=== PATIENT | female | born 1950 | race Caucasian/White ===

== ENCOUNTER → 2020-01-08 14:44 | Outpatient (BNVA) | payer MEDICARE, SELFPAY | PROVIDERS: Family Provider Electrodiagnostic Medicine; PCP Electrodiagnostic Medicine; Referring Provider Licensed Practical Nurse; Visit Provider Psychiatry & Neurology Neurology | DX: M79.602 Pain in left arm (principal); M79.601 Pain in right arm; M54.12 Radiculopathy, cervical region | CPT/HCPCS: 95886; 95910 ==

== ENCOUNTER → 2020-08-21 12:49 | Outpatient (BNVA) | payer MEDICARE, SELFPAY | PROVIDERS: Family Provider Electrodiagnostic Medicine; PCP Electrodiagnostic Medicine; Referring Provider Dermatology; Visit Provider Dermatology | DX: D48.5 Neoplasm of uncertain behavior of skin (principal); L57.0 Actinic keratosis; L82.1 Other seborrheic keratosis; D18.01 Hemangioma of skin and subcutaneous tissue; B35.1 Tinea unguium; D48.9 Neoplasm of uncertain behavior, unspecified; Z85.820 Personal history of malignant melanoma of skin | CPT/HCPCS: 11102; 17000; 17003; 88304; 99203; 99204 ==

== ENCOUNTER → 2021-09-20 15:21 | Outpatient (BNVA) | payer MEDICARE, SELFPAY | PROVIDERS: Family Provider Electrodiagnostic Medicine; PCP Electrodiagnostic Medicine; Visit Provider Registered Nurse Neonatal Intensive Care | DX: M25.532 Pain in left wrist (principal); S52.502A Unspecified fracture of the lower end of left radius, initial encounter for closed fracture; X58.XXXA Exposure to other specified factors, initial encounter | CPT/HCPCS: 73110 ==

== ENCOUNTER 2021-09-20 15:58 | Emergency (ER) | payer MEDICARE, SELFPAY ==
[2021-09-20 16:07] VITALS: BP 187/87; PULSE 85; RESP 18; TEMP 36.6; O2SAT 96; BMI 30.8
--- NOTE | 2021-09-20 16:38 | ED_ITS ---
HPI - Extremity Problem General: Chief complaint: Extremity Injury, Upper Stated complaint: FALL/L WRIST PAIN/SENT FROM [facility] [place] Time Seen by Provider: 09/20/21 16:38 History of Present Illness: HPI Narrative: Ms. Eng is a 71-year-old lady with history of back pain who presents emergency department due to fall with injury identified at urgent care. She reports being at her baseline health and was clipping her toenails when she started to fell backwards. She reached behind her with her left hand in order to protect her back and immediately had pain upon follow-up. Obvious deformity noted. She denies other prodromal symptoms, no other pain. Pain is moderate to severe in intensity and worse with palpation. She was placed in a shoulder sling by urgent care and referred to the emergency department. Asplu-ehss-tgnzdzsm. Neurovascular intact. Review of Systems General: Reports: 10 or more systems reviewed and unremarkable except in HPI and below PFSH ED PFSH: Medical History B12 deficiency Bilateral wrist pain Displacement of lumbar disc with radiculopathy Fibromyalgia History of malignant melanoma Hyperlipidemia Hypertension Intervertebral disc disorder with radiculopathy of lumbosacral region Lumbar stenosis with neurogenic claudication Melanoma Rheumatoid arthritis Spondylolisthesis of lumbosacral region Surgical History H/O: hysterectomy (~1978) History of back surgery Hx of fusion of cervical spine Nikki Huston in [place] S/P insertion of spinal cord stimulator (~2016) Dr Shade Muñiz, Neurosurgery [place], [place] (03/2017) Dr Mohan [facility] (Revision 03/03/2018) Family History Mother Stroke Melanoma Son Seizure disorder Liver disease Father Lung cancer Other Arthritis Social History Smoking and tobacco status: former smoker Alcohol intake: never Lives independently: Yes Household members: spouse Marital status: Current occupational status: disabled History of recent travel: No Physical Exam Narrative: EXAM NARRATIVE: GENERAL/CONSTITUTIONAL - well-appearing. Discomfort due to pain Eyes - PERRL, no conjunctival injection ENMT - Atraumatic external nose and ears. Moist mucous membranes NECK - supple. trachea midline CARDIOVASCULAR - regular rate and rhythm. Peripheral pulses 2+ and equal RESPIRATORY -clear to auscultation bilaterally. No retractions or accessory muscle use. ABDOMEN/GI - Nontender/Nondistended. MSK -head to toe exam without obvious additional finding other than obvious deformity with distal CMS intact left wrist. SKIN - Warm, Dry. No overlying open wounds. NEURO - alert and appropriately oriented. strength and sensation intact. Moves all extremities equally. Procedures Orthopedic Joint Reduction Joint #1: Time Out Performed: Yes Side: left Joint Reduction Location: wrist Analgesia: procedural sedation Technique used: direct manipulation Post-reduction neuro exam: intact Post-reduction vascular: intact Post Reduction X-Ray Obtained: Yes Post Reduction X-Ray Results: reduced (improved) Splint Applied: Yes Patient Tolerated Procedure: well Procedural Sedation Indication: fracture/dislocation reduction ASA Class: II Preparation: systems analyst engineer applied, pulse oximeter, supplemental O2 applied, suction/airway equipment at bedside and IV secured IV Propofol dose (mg): 70 Patient Tolerated Procedure: well Complications: none Course ED course: - Patient was seen and evaluated by me at bedside - Patient placed on cardiac monitors, IV access obtained - Initial evaluation notable for exam as noted above -Analgesia given - Imaging notable for x-ray reviewed from urgent care - Patient consented for procedural sedation and reduction - Reduction and procedural sedation performed without acute complication, some instability and inability to achieve anatomic alignment. - Upon serial reexamination after treatment the patient was improved. Patient fully recovered from procedural sedation and CMS intact. - Discussed with on-call orthopedics. - Based on patient history, evaluation, labs, and imaging as interpreted the most likely cause of the patient's condition is distal radius and ulna fracture - The results of ED evaluation were discussed with the patient including prescriptions and/or symptomatic cares (if applicable) including appropriate and responsible use, followup plan, and return precautions. The patient verbalized understanding and felt safe for discharge. - Patient discharged in satisfactory condition. Vital Signs: Vital signs: Vital Signs Temperature 97.8 F 09/20/21 16:07 Pulse Rate 72 09/20/21 19:54 Respiratory Rate 19 H 09/20/21 19:54 Blood Pressure 148/95 09/20/21 19:54 Pulse Oximetry 98 09/20/21 19:54 MDM - Extremity (Nontraumatic) Medical Records: Attestation: I reviewed the patient's medical records. Lab Data: Attestation: I reviewed the patient's lab results. Discharge Plan Discharge Patient Disposition: Home Clinical Impression: Distal radial fracture, Fracture of ulnar styloid Condition: Stable Prescriptions: New hydrocodone-acetaminophen 5-325 mg tablet 1 tab PO Q4H PRN (Reason: pain) Qty: 30 RF: 0 Zofran 4 mg tablet 4 mg PO Q8H 5 Days Qty: 15 RF: 0 No Action hydrochlorothiazide 25 mg tablet 25 mg PO QAM RF: 0 pseudoephedrine HCl [Sudogest] 30 mg tablet 30 mg PO BID RF: 0 Complete Multivitamin Tablet 1 tab PO QDAY RF: 0 magnesium 200 mg tablet 200 mg PO QDAY RF: 0 duloxetine 30 mg capsule, delayed rel sprinkle 30 mg PO QDAY RF: 0 duloxetine 60 mg capsule, delayed rel sprinkle 60 mg PO QDAY RF: 0 baclofen 10 mg tablet 10 mg PO QDAY PRNRF: 0 omeprazole 40 mg capsule,delayed release(DR/EC) 40 mg PO BID RF: 0 lovastatin 20 mg tablet 20 mg PO QDAY RF: 0 fluticasone furoate 50 mcg/actuation blister with device 1 inh INHALATION ONCE RF: 0 lisinopril 20 mg tablet 20 mg PO QDAY RF: 0 Belbuca 300 mcg film 300 mcg BUCCAL Q12H RF: 0 mupirocin 2 % ointment 1 applic topical BID Qty: 22 RF: 1 Discharge Orders: Discharge ED (Routine); Ordered 09/20/21 Ordered By: Ag Pretty Referrals: Gideon Santana DO [Primary Care Provider] - Discharge Diet: Usual diet Discharge Activity: Limit activity as instructed Patient Instructions: Wrist Fracture in Adults (ED), Procedural Sedation (ED), Closed Reduction (ED), Opioid Safety Activity Restrictions/Additional Instructions: Thank you for visiting the emergency department. You were seen and evaluated for wrist fracture. This was reduced at bedside and splinted. He will require follow-up with orthopedics. You will be given a prescription for analgesia. You may use Tylenol and ibuprofen on top of this. Keep in mind that each tablet contains 325 mg of Tylenol (acetaminophen) and must be included in the total daily dose limit. Please keep in mind that many medications that are namebrand contain the same active ingredients or class and do not exceed the daily recommended dosage. Please return to the emergency department for anything that you are concerned about and feel needs emergency department evaluation. Coding Level of Care Code ED Security Intelligence Analyst for Paul Barragan
[2021-09-20] MEDS: fentaNYL 50 mcg/mL INJ 2mL IVP (16:55)
[2021-09-20] MEDS: propofol 10 mg/mL SDV 20 mL 200 MG IVP (18:25)
--- NOTE | 2021-09-20 18:38 | XRR_ITS ---
PROCEDURE INFORMATION: Exam: XR Left Wrist Exam date and time: 09/20/2021 6:38 PM Age: 71 years old Clinical indication: Device placement; Other: Post reduction/splint TECHNIQUE: Imaging protocol: XR Left wrist. Views: 1 or 2 views. COMPARISON: CR XR wrist LT min 3V* [id number] 09/20/2021 3:25 PM FINDINGS: Bones/joints: Interval casting of the distal radius and ulnar fractures with improved alignment of the distal radial displaced fractures. Soft tissues: Soft tissues are obscured by casting. XR/XR wrist LT 2V [id number] IMPRESSION: Interval casting of the distal radius and ulnar fractures with improved alignment. Radiation Dose CTDIVOL = (mGy): DLP = (mGy-cm)
[2021-09-20] MEDS: ondansetron 2 mg/ML SDV 2 mL 4 MG IVP (18:42)
[2021-09-20 19:54] VITALS: BP 148/95; PULSE 72; RESP 19; O2SAT 98
--- NOTE | 2021-09-22 08:56 | DCPLANNER ---
senior international tax manager had message to schedule a follow up appointment for patient with ortho. senior international tax manager called the ortho clinic, spoke with Marlyn, gave clinic patients information. senior international tax manager was told that patients information would be printed and reviewed. Clinic will call patient with appointment information.
--- NOTE | 2021-09-25 15:20 | DCPLANNER ---
Patient had an appointment scheduled for 09.25.2021 with CANDY Tong at [facility] - patient did attend appointment.
== END 2021-09-20 19:54 | disposition home or self-care (01) ==
PROVIDERS: Emergency Provider Emergency Medicine; PCP Electrodiagnostic Medicine
DX: S52.612A Displaced fracture of left ulna styloid process, initial encounter for closed fracture (principal); S52.502A Unspecified fracture of the lower end of left radius, initial encounter for closed fracture; W19.XXXA Unspecified fall, initial encounter; I10 Essential (primary) hypertension; E78.5 Hyperlipidemia, unspecified; M06.9 Rheumatoid arthritis, unspecified; Z87.891 Personal history of nicotine dependence; M25.532 Pain in left wrist; X58.XXXA Exposure to other specified factors, initial encounter
CPT/HCPCS: 25605; 73100; 73110; 96374; 96375; 99284; J2405; J2704; J3010

== ENCOUNTER → 2021-09-26 00:01 | Outpatient (BNVA) | payer MEDICARE, SELFPAY | PROVIDERS: PCP Electrodiagnostic Medicine; Referring Provider Emergency Medicine; Visit Provider Physician Assistant | DX: Z20.822 Contact with and (suspected) exposure to COVID-19 (principal) | CPT/HCPCS: 87635 ==

== ENCOUNTER 2021-10-01 05:48 | Day surgery (SDC) | payer MEDICARE, OTHER, SELFPAY ==
[2021-09-30 13:45] VITALS: BMI 30.8
[2021-10-01] VITALS (8 sets, daily range): BP systolic 94–180; BP diastolic 65–108; PULSE 73–84; RESP 12–20; TEMP 36.2–37; O2SAT 94–98
--- NOTE | 2021-10-01 | SCC_ITS ---
Procedure Done: ORIF left extra articualr distal radius 12.3 seconds of fluoroscopic guidance, for a cumulative dose of 0.20 mGy, was provided to Dr. Soria by the radiology department. C-arm images of the LEFT wrist were saved for the patient's permanent record. DONELL
--- NOTE | 2021-10-01 | XR_ITS ---
WS: [id number] Left wrist, C-arm fluoroscopy, 10/01/2021 Clinical Data: or pics Comparison: Left wrist, 09/20/2021 Findings: Dr. Soria reduced the distal left radial fracture with a plate and screws. XR/XR wrist LT 2V [id number] Impression: Internal fixation of distal left radial fracture.
[2021-10-01] MEDS: sodium chloride 0.9% 1,000 ML 30 ML IV (06:30)
--- NOTE | 2021-10-01 06:49 | W.PM.OPSUD ---
Surgery/Procedure H&P Update DATE OF PROCEDURE: October 01, 2021 DATE H&P PERFORMED: 09/25/21 H&P UPDATE INFORMATION: I have reviewed H&P completed within last 30 days, I have examined patient prior to procedure and No changes to prior documentation PREOP DIAGNOSIS: Left distal radius fracture PLANNED PROCEDURE: Operation Date: 10/01/21 07:00 Proposed Procedures p ORIF Wrist 99481 S52.509A(Not Applicable) - Farhad Soria DO
--- NOTE | 2021-10-01 06:54 | ANES.PREANE2 ---
Pre-Anesthetic Assessment Pre-Anesthetic Assessment: Height/Weight: Height 1.6 m Weight 78.925 kg Temp Pulse Resp BP Pulse Ox 98.1 F 84 18 180/90 96 10/01/21 06:11 10/01/21 06:11 10/01/21 06:11 10/01/21 06:11 10/01/21 06:11 Preop Diagnosis: Left distal radius fracture Proposed Procedure: Operation Date: 10/01/21 07:00 Proposed Procedures p ORIF Wrist 33413 S52.509A(Not Applicable) - Farhad Soria DO Familial anesthetic complications: none Was Beta Akila taken within 24 hours: N/A Was Clonidine taken within 24 hours: N/A Last intake: Intake Last Liquid Date 09/30/21 Last Liquid Time 23:30 Last Solid Date 09/30/21 Last Solid Time 23:30 Social: Social History: No alcohol and No tobacco Exam: Pre-Anes Outpt Exam: alert, oriented x 3, clear to auscultation bilaterally and regular rate & rhythm Airway: Cervical ROM: WNL MP: 1 Dentition: False CV/HEM: CV/HEM: HTN Musc/skel: Musc/skel: Fibromyalgia Anesthetic Plan: ASA status: 2 Anesthesia: General and Regional (specify below) Risk of > 500 ml blood loss (7ml/kg in children): No PFSH Anesthesia PFSH: Medical History B12 deficiency Bilateral wrist pain Displacement of lumbar disc with radiculopathy Fibromyalgia History of malignant melanoma Hyperlipidemia Hypertension Intervertebral disc disorder with radiculopathy of lumbosacral region Lumbar stenosis with neurogenic claudication Melanoma Rheumatoid arthritis Spondylolisthesis of lumbosacral region Surgical History H/O: hysterectomy (~1978) History of back surgery Hx of fusion of cervical spine Nikki Huston in [place] S/P insertion of spinal cord stimulator (~2016) Dr Shade Muñiz, Neurosurgery [place], [place] (03/2017) Dr Mohan, [facility] (Revision 03/03/2018) Family History Mother Stroke Melanoma Son Seizure disorder Liver disease Father Lung cancer Other Arthritis Social History Smoking and tobacco status: former smoker Alcohol intake: never Lives independently: Yes Household members: spouse Marital status: Current occupational status: disabled History of recent travel: No Data Anesthesia Cardiac Studies: No Data to Display
--- NOTE | 2021-10-01 06:55 | ANES.PROC ---
Anesthesia Procedures Procedure/Date: 10/01/21 Nerve Block ^: Nerve Block 1: Main Anesthesia: general anesthesia Time Out Performed: Yes Consent: requested by attending/covering physician, from patient, risks and benefits reviewed and patient agrees to proceed Nerve block location: axillary (L) Anesthesia monitors applied: pulse oximetry, EKG, BP cuff and oxygen Nerve block position: semi sitting Anesthetic Used: ropivicaine 0.5% and with decadron (4 mg) Amount of anesthesia used (mL): 30 Ultrasound used to: recognize landmarks and visualize and ID brachial plexus Nerve Stimulator Used?: No Interscalene/Femoral BLK: 2 stimuplex 22 g needle used for position and inplane approach, visualize local anesthetic spread and no vascular puncture identified Injection: neg aspiration of heme Patient Tolerated Procedure: well Complications: none
--- NOTE | 2021-10-01 07:48 | PM.OP ---
Operative Report Date of procedure: October 01, 2021 Pre-op Diagnosis: Left distal radius fracture extra aricular Post-op diagnosis: same Procedure Done: ORIF left extra articualr distal radius Surgeon: Farhad Soria Campground Caretaker: Baldemar Tong Campground Caretaker: Baldemar GUPTA was needed for his expertise in orthopedics to help take care of the patient in a timely fashion. He helped with retraction closure positioning the patient and placed in the splint. Anesthesia: General Estimated blood loss (mL): 5 Condition: stable Disposition: PACU Procedure: ORIF left extra articualr distal radius Patient was brought to the operative suite placed in the supine position all areas impingement well-padded. Skin incision made after being prepped and draped in normal sterile fashion. Skin is made over the volar surface of the wrist on the left. The flexor carpi radialis tendon was identified retracted ulnarly. The compartment fascia was split the pronator quadratus was reflected ulnarly. fracture was identified. Fractures was reduced using a [place]. Once the fracture was reduced a Anitra plate was placed. 3 locking screws were placed distally the fracture was reduced and the cortical screws helped to restore volar tilt. And then in the locking screw was placed into the shaft of the plate. AP and lateral fluoroscopy ensured the fracture and hardware improved positions. Wounds irrigated closed with Vicryl and Monocryl suture. Sterile dressings were applied. Patient was placed in a volar splint and transferred to the PACU in stable condition.
--- NOTE | 2021-10-01 07:53 | P.PCN_ITS ---
PACU note PACU note: VSS, Good respiratory effort, report to VIDEO GAME MAKER Post-Anesthesia Exam: awake
--- NOTE | 2021-10-01 07:53 | PM.PACU ---
PACU note PACU note: VSS, Good respiratory effort, report to LABORATORY APPARATUS GLASS BLOWER Post-Anesthesia Exam: awake
--- NOTE | 2021-10-01 15:39 | ANE.PACU2 ---
Inpatient post-anesthesia follow up: Airway intact: Yes Vital signs: Temperature 98.6 F Pulse Rate 78 Respiratory Rate 18 Blood Pressure 149/93 Pulse Oximetry 94 Oxygen Delivery Me thod Room Air Oxygen Flow Rate 8 Fraction of Inspir ed Oxygen Hydration adequate: Yes Nausea and vomiting: No Pain level: 3 Mental status: Baseline
== END 2021-10-01 09:15 | disposition home or self-care (01) ==
PROVIDERS: PCP Electrodiagnostic Medicine; Visit Provider Orthopaedic Surgery
PROC: (CPT 25607; principal; 2021-10-01 07:00)
DX: M25.532 Pain in left wrist (principal); M79.7 Fibromyalgia; I10 Essential (primary) hypertension; Z98.1 Arthrodesis status; Z87.891 Personal history of nicotine dependence; Z88.5 Allergy status to narcotic agent; Z88.2 Allergy status to sulfonamides
CPT/HCPCS: 25607; 64415; 73100; 76000; 76942; C1713; J0690; J1100; J2704; J2795; J3010; J7030

== ENCOUNTER → 2021-10-21 10:06 | Outpatient (BNVA) | payer MEDICARE, SELFPAY | PROVIDERS: PCP Electrodiagnostic Medicine; Visit Provider Orthopaedic Surgery | DX: S52.502D Unspecified fracture of the lower end of left radius, subsequent encounter for closed fracture with routine healing (principal); X58.XXXD Exposure to other specified factors, subsequent encounter; M51.16 Intervertebral disc disorders with radiculopathy, lumbar region | CPT/HCPCS: 73110 ==

== ENCOUNTER 2021-10-21 14:41 | Outpatient (CLI) | payer MEDICARE, SELFPAY | END 2021-10-21 14:42 | disposition home or self-care (01) | LOC: SPT 14:42 | PROVIDERS: PCP Electrodiagnostic Medicine; Visit Provider Orthopaedic Surgery | DX: Z46.89 Encounter for fitting and adjustment of other specified devices (principal); S52.509A Unspecified fracture of the lower end of unspecified radius, initial encounter for closed fracture; S52.613A Displaced fracture of unspecified ulna styloid process, initial encounter for closed fracture; X58.XXXA Exposure to other specified factors, initial encounter | CPT/HCPCS: L3908 ==

== ENCOUNTER → 2021-11-20 08:58 | Outpatient (BNVA) | payer MEDICARE, SELFPAY | PROVIDERS: PCP Electrodiagnostic Medicine; Visit Provider Physician Assistant | DX: Z48.89 Encounter for other specified surgical aftercare (principal) | CPT/HCPCS: 73110 ==

== ENCOUNTER → 2021-12-04 14:44 | Outpatient (BNVA) | payer MEDICARE, SELFPAY | PROVIDERS: PCP Electrodiagnostic Medicine; Visit Provider Physician Assistant | DX: M17.11 Unilateral primary osteoarthritis, right knee (principal); M25.562 Pain in left knee | CPT/HCPCS: 73560; 73565 ==

== ENCOUNTER → 2022-01-13 12:40 | Day surgery (SDC) | payer MEDICARE, SELFPAY | PROVIDERS: PCP Electrodiagnostic Medicine; Visit Provider Orthopaedic Surgery | DX: Z01.818 Encounter for other preprocedural examination (principal); M17.11 Unilateral primary osteoarthritis, right knee | CPT/HCPCS: 80048; 85025; 93005 ==

== ENCOUNTER → 2022-01-20 14:09 | Outpatient (BNVA) | payer MEDICARE, SELFPAY | PROVIDERS: PCP Electrodiagnostic Medicine; Visit Provider Orthopaedic Surgery | DX: Z01.812 Encounter for preprocedural laboratory examination (principal); Z20.822 Contact with and (suspected) exposure to COVID-19 | CPT/HCPCS: 87635 ==

== ENCOUNTER → 2022-02-06 00:01 | Outpatient (BNVA) | payer MEDICARE, SELFPAY | PROVIDERS: PCP Electrodiagnostic Medicine; Visit Provider Orthopaedic Surgery | DX: Z01.812 Encounter for preprocedural laboratory examination (principal); Z20.822 Contact with and (suspected) exposure to COVID-19 | CPT/HCPCS: 87635 ==

== ENCOUNTER 2022-02-09 09:43 | Observation (INO) | payer MEDICARE, SELFPAY ==
--- NOTE | 2022-01-13 13:56 | ECG_ITS ---
[facility] Test Date: 2022-01-13 Pat Name: Maris Eng Department: Room: Gender: Female Telesales Professional: : 1950 Requested By: Yeison Dennis Order Number: [id number] Alcides MD: Marcy Walters M.D. Measurements Intervals [place] Rate: 82 P: 38 AK: 207 QRS: -12 QRSD: 77 T: 67 QT: 383 QTc: 450 Interpretive Statements SINUS RHYTHM VOLTAGE CRITERIA FOR LVH NONSPECIFIC T-WAVE ABNORMALITY Compared to ECG 07/30/2016 09:47:15 T-wave abnormality now present First degree AV block no longer present Electronically Signed On 01-13-2022 17:44:41 SALESFORCE CONSULTANT by Marcy Walters M.D. [id number]
[2022-01-13 14:35] LABS: Basophils # 0.1 10^3/uL (0.0-0.1); Eosinophils # 0.9 10^3/uL (0.0-0.8); Eosinophils % 9.8 %; Hemoglobin 11.8 g/dL (11.5-15.3); Lymphocytes # 1.9 10^3/uL (0.8-4.8); Lymphocytes % 21.8 %; Mean Corpuscular HGB Conc 31.9 g/dL (30.0-36.0); Mean Corpuscular Hemoglobin 26.9 pg (28.0-34.0); Mean Corpuscular Volume 84.5 fl (81-99); Mean Platelet Volume 10.2 fL (7.4-10.4); Monocytes # 0.8 10^3/uL (0.2-0.9); Monocytes % 8.5 %; Neutrophils # 5.19 10^3/uL (1.8-7.7); Neutrophils % 58.4 %; Nucleated Red Blood Cells % 0 %; Platelet Count 444 10^3/cmm (130-400); Red Blood Count 4.38 10^6/uL (4.1-5.3); Red Cell Distribution Width 14.6 % (12.1-15.1); White Blood Count 8.9 10^3/uL (4.0-10.0)
--- NOTE | 2022-01-13 14:44 | ANES.PREANE2 ---
Pre-Anesthetic Assessment Height/Weight: Height 1.63 m Weight 79.379 kg Preop Diagnosis: Left distal radius fracture extra aricular Operation Date: 01/19/22 07:00 Proposed Procedures p Total Knee Arthroplasty 94476/m17.11(Right) - Braydon Huang MD Familial anesthetic complications: None Was Beta Akila taken within 24 hours: N/A Was Clonidine taken within 24 hours: N/A Social No alcohol and No tobacco Exam alert, oriented x 3, clear to auscultation bilaterally and regular rate & rhythm Airway Submandibular: within normal limits Cervical ROM: within normal limits Mallampati: Class II Dentition: false Pulmonary None reported CV/HEM Hypertension METS < 4 due to pain None reported Hepatic None reported Metabolic None reported Musc/skel Osteoarthritis/DJD S/P spinal cord stimulator explant Cervical radiculopathy Neuropsych Anxiety Admits to memory loss of remote events recently, no problems with executive functions. Anesthetic Plan ASA status: 2 Anesthesia: Anesthesia Evaluation, Eval. for regional block, General and Regional (specify below) (Adductor canal block for post op pain control. ) Other: We discussed risk and benefits of general vs spinal anesthesia including DVT risk, infection, paralysis/catastrophic nerve injury, back bruising/pain, PDPH, conversion to general in case of spinal, PONV, sore throat (sometimes severe), corneal abrasion, positioning and peripheral nerve injuries, life threatening allergic reaction, post operative ICU admission requiring prolonged intubation, stroke, heart attack, , and rare incidences of recall. We discussed risk and benefits of nerve block for post op pain control including management of pain and titration of pain medications as signs/symptoms of nerve block wearing off begin to appear and/or prior bed. We discussed risk of failed nerve block, vascular injury or other vital structure injury, abscess/infection, LAST, nerve injury?. Patient has a history of RA and prior spinal hardware in low back. Patient understands that spinal may attempt may be unsuccessful. Patient is agreeable to spinal or general anesthesia. Plan further discussion of primary anesthetic on day of surgery with adductor canal block for post op pain control. Risk of > 500 ml blood loss (7ml/kg in children): No Medications/Allergies Home Medications Medication Instructions Recorded Confirmed Last Taken Type duloxetine 30 mg capsule,delayed 30 mg PO QDAY 12/11/19 01/13/22 09/30/21 History release sprinkle duloxetine 60 mg capsule,delayed 60 mg PO QDAY 12/11/19 01/13/22 09/30/21 History release sprinkle hydrochlorothiazide 25 mg tablet 25 mg PO QAM 12/11/19 01/13/22 09/30/21 History magnesium 200 mg tablet 200 mg PO QDAY 12/11/19 01/13/22 09/30/21 History multivitamin,cr-ybbs-knnjgfow 1 tab PO QDAY 12/11/19 01/13/22 09/30/21 History (Complete Multivitamin) omeprazole 40 mg capsule,delayed 40 mg PO BID 12/11/19 01/13/22 09/30/21 History release Cock up splint #1 ea 10/21/21 01/07/22 Unknown Rx celecoxib 200 mg capsule 200 mg PO BID 01/13/22 01/13/22 Unknown History cyanocobalamin (vitamin B-12) mcg 01/13/22 Unknown History 1,000 mcg/mL injection syringe cyclobenzaprine 10 mg tablet 10 mg PO TID PRN 01/13/22 01/13/22 Unknown History docusate sodium 50 mg capsule 50 mg PO DAILY 01/13/22 01/13/22 Unknown History lisinopril 20 mg tablet 20 mg PO DAILY 01/13/22 01/13/22 Unknown History melatonin 12 mg tablet mg PO 01/13/22 Unknown History pumpkin seed extract-soy germ 300 cap PO 01/13/22 Unknown History mg capsule (Azo Bladder Control) tizanidine 2 mg capsule 2 mg PO Q8H PRN 01/13/22 01/13/22 Unknown History Allergies Allergy/AdvReac Type Severity Reaction Status Date / Time acetaminophen [From Percocet] Allergy nausea/vomi Verified 01/07/22 15:23 ting oxycodone [From Percocet] Allergy nausea/vomi Verified 01/07/22 15:23 ting Sulfa (Sulfonamide Allergy Unknown Verified 01/07/22 15:23 Antibiotics) tramadol Allergy Itching, Verified 01/07/22 15:23 Nausea PFSH Anesthesia Medical History B12 deficiency Bilateral wrist pain Displacement of lumbar disc with radiculopathy Fibromyalgia History of malignant melanoma Hyperlipidemia Hypertension Intervertebral disc disorder with radiculopathy of lumbosacral region Lumbar stenosis with neurogenic claudication Melanoma Rheumatoid arthritis Spondylolisthesis of lumbosacral region Surgical History H/O: hysterectomy (~1978) History of back surgery Hx of fusion of cervical spine Nikki Huston in [place] S/P insertion of spinal cord stimulator (~2016) Dr Shade Muñiz, Neurosurgery [place], [place] (03/2017) Dr Mohan, [facility] (Revision 03/03/2018) Family History Mother Stroke Melanoma Son Seizure disorder Liver disease Father Lung cancer Other Arthritis Social History Smoking and tobacco status: former smoker Alcohol intake: never Lives independently: Yes Household members: spouse Marital status: Current occupational status: disabled History of recent travel: No Data Anesthesia : 01/13/22 14:18 01/13/22 14:18 Short CBC 01/13/22 Range/Units 14:18 WBC 8.9 (4.0-10.0) 10^3/uL Hgb 11.8 (11.5-15.3) g/dL Hct 37.0 (37.0-47.0) % MCV 84.5 (81-99) fl Plt Count 444 H (130-400) 10^3/cmm Neut % (Auto) 58.4 % Neut # (Auto) 5.19 (1.8-7.7) 10^3/uL Cardiac Studies: No Data to Display
[2022-01-13 14:51] LABS: Chloride 104 mmol/L (98-107); Glucose 115 mg/dL (65-115); Potassium 3.8 mmol/L (3.5-5.1); Sodium 138 mmol/L (136-145)
[2022-01-13 15:13] LABS: Anion Gap 16.8 (5-19); Blood Urea Nitrogen 26 mg/dL (8-23); Calcium 9.6 mg/dL (8.5-10.5); Carbon Dioxide 21 mmol/L (22-29); Osmolality Calculated 292 mOsm/kg (285-295)
[2022-02-09] VITALS (20 sets, daily range): BP systolic 116–173; BP diastolic 45–100; PULSE 68–86; RESP 13–22; TEMP 36.2–37; O2SAT 93–99
[2022-02-09] MEDS: sodium chloride 0.9% 1,000 ML 30 ML IV (06:37)
[2022-02-09] MEDS: acetaminophen 500 mg Tablet 1000 MG PO ×3 (06:37→17:10)
[2022-02-09] MEDS: gabapentin 300 mg Capsule PO (06:37)
--- NOTE | 2022-02-09 06:55 | P.HP_ITS ---
Same Day Surgery H&P Indication for Procedure/HPI DATE OF PROCEDURE: February 09, 2022 CHIEF COMPLAINT/INDICATIONFOR SURGICAL PROCEDURE: Osteoarthritis right knee here for right total knee PREOP DIAGNOSIS: Osteoarthritis right knee PLANNED PROCEDURE: Operation Date: 01/26/22 17:30 Proposed Procedures p Total Knee Arthroplasty 76430/m17.11(Right) - Braydon Huang MD Operation Date: 02/09/22 07:00 Proposed Procedures p Total Knee Arthroplasty 96432/m17.11(Right) - Braydon Huang MD 71-year-old with chronic right knee pain worse over the last year. Has failed medical management with anti-inflammatories and injections. Here for total knee arthroplasty Medications/Allergies* Home Medications Medication Instructions Recorded Confirmed Type duloxetine 30 mg capsule,delayed 30 mg PO QDAY 12/11/19 02/09/22 History release sprinkle duloxetine 60 mg capsule,delayed 60 mg PO QDAY 12/11/19 02/09/22 History release sprinkle hydrochlorothiazide 25 mg tablet 25 mg PO QAM 12/11/19 02/09/22 History magnesium 200 mg tablet 200 mg PO QDAY 12/11/19 02/09/22 History multivitamin,kd-yeif-cknmrchq 1 tab PO QDAY 12/11/19 01/13/22 History (Complete Multivitamin) omeprazole 40 mg capsule,delayed 40 mg PO BID 12/11/19 02/09/22 History release celecoxib 200 mg capsule 200 mg PO BID 01/13/22 02/09/22 History cyanocobalamin (vitamin B-12) mcg 01/13/22 History 1,000 mcg/mL injection syringe docusate sodium 50 mg capsule 50 mg PO DAILY 01/13/22 02/09/22 History melatonin 12 mg tablet mg PO 01/13/22 History tizanidine 2 mg capsule 2 mg PO Q8H PRN 01/13/22 02/09/22 History Allergies/Adverse Reactions Allergy/AdvReac Type Severity Reaction Status Date / Time acetaminophen [From Percocet] Allergy nausea/vomi Verified 02/09/22 06:17 ting oxycodone [From Percocet] Allergy nausea/vomi Verified 02/09/22 06:17 ting Sulfa (Sulfonamide Allergy Unknown Verified 02/09/22 06:17 Antibiotics) tramadol Allergy Itching, Verified 02/09/22 06:17 Nausea Current Medications: Generic Name Dose Route Start Last Admin Trade Name Raul PRN Reason Stop Dose Admin Sodium Chloride 1,000 mls @ 30 mls/hr 02/09/22 06:15 02/09/22 06:37 Sodium Chloride 0.9% IV 02/10/22 06:14 30 mls/hr .Q24H CAMMY Administration Pertinent History/Comorbid Conditions* Medical History (Updated 12/04/21 @ 15:14 by Baldemar Tong PA-C) B12 deficiency Bilateral wrist pain Displacement of lumbar disc with radiculopathy Fibromyalgia History of malignant melanoma Hyperlipidemia Hypertension Intervertebral disc disorder with radiculopathy of lumbosacral region Lumbar stenosis with neurogenic claudication Melanoma Rheumatoid arthritis Spondylolisthesis of lumbosacral region Surgical History (Updated 12/15/20 @ 15:04 by Yulisa Valdez DO) H/O: hysterectomy (~1978) History of back surgery Hx of fusion of cervical spine Nikki Huston in [place] S/P insertion of spinal cord stimulator (~2016) Dr Shade Muñiz, Neurosurgery [place], [place] (03/2017) Dr Mohan, [facility] (Revision 03/03/2018) Family History (Updated 10/27/19 @ 14:28 by Macy Lopez RN) Liver disease Son Arthritis Melanoma Mother Seizure disorder Son Lung cancer Father Stroke Mother Social History Smoking and tobacco status: former smoker Alcohol intake: never Lives independently: Yes Household members: spouse Marital status: Current occupational status: disabled History of recent travel: No Pertinent Exam Findings alert, oriented x 3, clear to auscultation bilaterally and regular rate & rhythm Recommendations Surgery/Procedure today Coding Level of Care Code Acute Nuclear Equipment Sales Engineer for Paul Barragan
--- NOTE | 2022-02-09 07:29 | P.ANESUD_ITS ---
Pre-Anesthetic Update Pre-Anesthetic Assessment: Date of Surgery/Procedure: 02/09/22 Preop Christie gnosis: Osteoarthritis right knee Proposed Procedure: Operation Date: 01/26/22 17:30 Proposed Procedures p Total Knee Arthroplasty 91146/m17.11(Right) - Braydon Huang MD Operation Date: 02/09/22 07:00 Proposed Procedures p Total Knee Arthroplasty 15677/m17.11(Right) - Braydon Huang MD Any changes to Pre-Anesthetic Assessment?: No Last Intake: Intake Last Solid Date 02/08/22 Vitals: Temperature 97.6 F 02/09/22 06:13 Temperature Source Temporal Artery S can 02/09/22 06:13 Pulse Rate 84 02/09/22 06:13 Pulse Rhythm 02/09/22 06:11 Pulse Strength 3+ Normal 02/09/22 06:11 Respiratory Rate 18 02/09/22 06:13 Blood Pressure 167/77 02/09/22 06:13 Blood Pressure Melinda n 107 02/09/22 06:13 Pulse Oximetry 99 02/09/22 06:13 Oxygen Delivery Me thod 02/09/22 06:13 Exam: Pre-Anes Outpt Exam: alert, oriented x 3, clear to auscultation bilaterally and regular rate & rhythm Cardiac Studies: No Data to Display Anesthesia Procedures Nerve Block: Nerve Block 1: Main Anesthesia: spinal anesthesia block Time Out Performed: Yes Consent: requested by attending/covering physician, from patient, risks and benefits reviewed and patient agrees to proceed Nerve block location: adductor canal (right) Anesthesia monitors applied: pulse oximetry, EKG, BP cuff and oxygen Nerve block position: supine Anesthetic Used: ropivicaine 0.5% Amount of anesthesia used (mL): 20 Ultrasound used to: recognize landmarks Nerve Stimulator Used?: No Interscalene/Femoral BLK: 4 stimuplex 21 g needle used for position and inplane approach Injection: neg aspiration of heme Patient Tolerated Procedure: well Complications: none
[2022-02-09] MEDS: ketorolac 30 mg/mL INJ XX (08:03)
[2022-02-09] MEDS: EPINEPHrine 1 mg/mL INJ XX (08:03)
[2022-02-09] MEDS: tranexamic acid 1,000 mg/10mL SDV 1000 MG XX (08:04)
[2022-02-09] MEDS: sodium chloride 0.9% 100 mL Bag XX (08:04)
[2022-02-09] MEDS: tranexamic acid 1,000 mg/10mL SDV 1000 MG IV (08:04)
--- NOTE | 2022-02-09 09:02 | XR_ITS ---
WS: [id number] KNEE RIGHT TECHNIQUE: 2 views of the right knee CLINICAL INFORMATION: Right Total Knee arthroplasty COMPARISON: None. FINDINGS: Normal anatomic alignment. Postoperative changes RIGHT TKA. Hardware appears in good position. No paige dence of hardware loosening. Patellar prosthesis. Soft tissue edema with small suprapatellar effusion with postoperative air in the suprapatellar bursa. XR/XR knee RT 1-2V 32960 IMPRESSION: Normal for postoperative purposes. Kellgren-Uriel Classification: NA
--- NOTE | 2022-02-09 09:12 | P.PCN_ITS ---
PACU note Narrative: VSS, Good respiratory effort, report to HOSPICE CARE TRANSITIONS COORDINATOR Exam: awake
--- NOTE | 2022-02-09 09:12 | PM.PACU ---
PACU note Narrative: VSS, Good respiratory effort, report to SOAP DRIER OPERATOR Exam: awake
--- NOTE | 2022-02-09 09:15 | SUR.PHASEI ---
09 PT TO PACU 5 AWAKE ALERT , PT ID WITH 2 IDENTIFIERS, VSS PT ON RA, SATS 94% , RT KNEE DRESSING D/I STRONG REGULAR PULSE NOTED AND MARKED TO RT DISTAL FOOT, FOOT PINK WARM TO TOUCH, PT HAD SPINAL ANESTHESIA, PT ABLE TO MOVE BILAT FEET AND KNEES, PT VERBALLY DENIES PAIN AND NAUSEA. FIRST ICE TO RT KNEE 09 X RAY HERE, DR BARRIOS AT BEDSIDE, PT AWAKE ALERT VSS DENIES PAIN HOB AT 30 DEGREES.
--- NOTE | 2022-02-09 09:34 | SUR.PHASEI ---
MONITOR IS SR AND DRESSING TO RT KNEE UNCHANGED, DISTAL FOOT PINK WARM WITH STRONG REGULAR PULSE, PT AWAKE ALERT TAKING ICE CHIPS VSS. BILAT FOOT PUMPS ON , PT TO GO TO FLOOR PER BED, WAITING TO GIVE REPORT.
--- NOTE | 2022-02-09 09:36 | SUR.PHASEI ---
PT HAS A FOLEYCATHETER WITH YELLOW URINE TO TUBING AND BAG, STAT LOCK TO LT THIGH.
--- NOTE | 2022-02-09 09:39 | SUR.PHASEI ---
PT SPINAL LEVEL AT L-3 LEVEL, PT REPORT CALLED TO FLOOR NURSE PT TO FLOOR PER BED, FAMILY UPDATED.
[2022-02-09] MEDS: pantoprazole DR 40 mg Tablet PO ×2 (10:22→17:10)
[2022-02-09] MEDS: CELEcoxib 200 mg Capsule PO ×2 (10:22→17:10)
[2022-02-09] MEDS: aspirin 325 mg EC Tablet PO (10:22)
[2022-02-09] MEDS: sodium chloride 0.9% 1,000 ML 100 ML IV (10:22)
--- NOTE | 2022-02-09 14:57 | ANE.PACU2 ---
Inpatient post-anesthesia follow up: Airway intact: Yes Vital signs: Temperature 97.5 F Pulse Rate 77 Respiratory Rate 18 Blood Pressure 168/75 Pulse Oximetry 95 Oxygen Delivery Me thod Room Air Oxygen Flow Rate Fraction of Inspir ed Oxygen Hydration adequate: Yes Nausea and vomiting: No Pain level: 1 Mental status: Baseline
[2022-02-09] MEDS: ondansetron 2 mg/ML SDV 2 mL 4 MG IVP (17:10)
[2022-02-09] MEDS: oxyCODONE 5 mg IR Tab/Cap PO (17:10)
[2022-02-09] MEDS: HYDROcodone-acetaminophen 7.5-325 mg Tablet 1 TAB PO (19:50)
[2022-02-09] MEDS: morphine 4 mg/mL SDV 1 mL 2 MG IVP (22:10)
[2022-02-10] VITALS (8 sets, daily range): BP systolic 141–172; BP diastolic 69–84; PULSE 80–90; RESP 14–17; TEMP 36.7–37.7; O2SAT 90–93
[2022-02-10] MEDS: HYDROcodone-acetaminophen 7.5-325 mg Tablet 1 TAB PO ×4 (00:26→20:41)
[2022-02-10] MEDS: sodium chloride 0.9% 1,000 ML 100 ML IV (00:27)
[2022-02-10 06:00] LABS: Hemoglobin 9.1 g/dL (11.5-15.3)
[2022-02-10] MEDS: hydroCHLOROthiazide 25 mg Tablet PO (06:26)
[2022-02-10] MEDS: morphine 4 mg/mL SDV 1 mL 2 MG IVP (06:34)
[2022-02-10] MEDS: oxyCODONE 5 mg IR Tab/Cap PO ×2 (09:17→12:53)
[2022-02-10] MEDS: ondansetron 4 MG Tablet 2 MG PO (09:20)
[2022-02-10] MEDS: duloxetine 30 mg Capsule PO (09:37)
[2022-02-10] MEDS: aspirin 325 mg EC Tablet PO (09:37)
[2022-02-10] MEDS: pantoprazole DR 40 mg Tablet PO ×2 (09:37→17:38)
[2022-02-10] MEDS: CELEcoxib 200 mg Capsule PO ×2 (09:38→17:38)
[2022-02-10] MEDS: acetaminophen 325 mg Tablet 650 MG PO ×2 (09:38→17:38)
[2022-02-10] MEDS: duloxetine 60 mg Capsule PO (09:38)
--- NOTE | 2022-02-10 10:26 | PC.CHAP ---
Pastoral Care Encounter/Spiritual Assessment Type of Contact [] Declined public relations writer visit [] Patient/Family/Request visit [] Outpatient visit [] Follow-up visit [] Physician referral [] Code/Alert [x] Routine visit [] Staff referral [] Actively dying [] Patient sleeping [] Family support [] [] Out of room [] Palliative care [] [] Receiving care in room [] Pre-surgical visit [] Trauma [] Long length of stay [] ICU visit [] Other: Relational/Emotional Strength [x] Patient feels connected with others/family/visitors/staff [] Distress [] Loneliness/isolation [] Abandonment Spirituality of Patient [x] Person of Jackeline [] Attends Holiness of their Jackeline [x] Believes in Prayer [x] Reads Bible or Amish materials [] There are Spiritual issues to be addressed Arch Support Technician Interventions [x] Prayer [x] Active listening [x] Non-anxious presence [x] Spiritual/emotional support [] Crisis/trauma care [] Spiritual counseling [] Bereavement support [] Provided bereavement packet [] Provided Bible/devotional materials [] Provided toy/stuffed animal, coloring book to patient or family member [] Provided Communion [] Anointing/Drift [] Salvation [x] Completed spiritual assessment [] Other: Impact on Illness or Injury [] Angry [] Fearful [] Anxious [] Often cries [] Exhaustion [] Unable to work [x] Unable to attend yarsanism [] Unable to walk/stand [] Unable to read [] Unable to drive [] Unable to eat/drink [] Unable to sleep [] Unable to be with family [] Patient intubated [] Other: Summary Pt's was present for the visit. 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. Due to health issues she can no longer serve but has hopes of returning if her bodies heals enough. He son is also a public policy manager in . In 2014 she lost a son due to life long medical issues. Time spent with patient 15 m
--- NOTE | 2022-02-10 13:13 | PM.PN ---
Subjective Subjective: Maris continues to complain of the pain. He states he is doing better with oxycodone than the hydrocodone. Vitals/I&O/Wt Last Vital Signs Temp 99.9 F H 02/10/22 11:24 Pulse 90 02/10/22 11:24 Resp 16 02/10/22 12:53 BP 167/72 02/10/22 11:24 Pulse Ox 90 02/10/22 12:53 02/09/22 02/10/22 02/10/22 22:59 06:59 14:59 Intake Total 1840 / 4300 1060 / 1060 Output Total 900 / 1000 950 / 1950 Balance 940 / 3300 -950 / 2350 1060 / 1060 Physical Exam Narrative: Right knee incision clean and dry. No swelling Const: COMMON NORMALS: no acute distress Urinary Catheter Management: Choi: Cath Placed During This Visit: yes Reason for Continuing Indwelling Catheter: Required Immobilization for Trauma or Surgery or Anesthesia Urinary Catheter Date of Insertion: 02/09/22 Urinary Catheter Time of Insertion: 07:30 Data : 02/10/22 05:40 01/13/22 14:18 A&P Assessment and plan (1) Status post right knee replacement: Maris had a difficult time with therapy this morning. Will need to continue inpatient stay until independent with walker. Continue current pain regimen. I told her we cannot can continue with a Choi catheter solely for convenience. Status: Acute Attestations Medical Necessity Statement*: Continue hospitalization until independent with walker. Coding Level of Care Code Acute International Trade Specialist for Paul Barragan Diagnoses Status post right knee replacement Z96.651
[2022-02-11 00:38] VITALS: BP 158/73; PULSE 79; RESP 17; TEMP 36.9; O2SAT 91
[2022-02-11] MEDS: HYDROcodone-acetaminophen 7.5-325 mg Tablet 1 TAB PO ×3 (00:55→08:56)
[2022-02-11] MEDS: acetaminophen 325 mg Tablet 650 MG PO ×2 (00:56→08:57)
[2022-02-11 03:17] VITALS: BP 168/79; PULSE 82; RESP 18; TEMP 36.9
[2022-02-11] MEDS: hydroCHLOROthiazide 25 mg Tablet PO (05:01)
[2022-02-11 08:00] VITALS: BP 169/69; PULSE 84; RESP 18; TEMP 36.4; O2SAT 98
--- NOTE | 2022-02-11 08:06 | PM.DCS ---
Discharge Providers Date of Admission: 02/09/22 09:43 Date of Discharge: February 11, 2022 Attending Provider at Admission: Braydon Huang MD Attending Provider at Discharge: Braydon Huang MD Primary Care Provider: Gideon Santana DO Diagnoses at Discharge Discharge Diagnosis (1) Status post right knee replacement: Status: Acute Reason for Visit Reason for Visit: unilateral primary osteoarthrits Brief History: 71-year-old female with osteoarthritis of right knee admitted on 02/09/2022 for elective right total knee arthroplasty Hospital Course Hospital Course The patient tolerated surgery well. They remained hemodynamically stable. They was begun on aspirin and foot pumps for DVT prophylaxis. The patient was mobilized with therapy beginning the day of surgery and by the second postoperative day independent with the walker. As the pain was adequately controlled and they were fully mobile they were discharged home. Physical Exam Narrative: On the day of discharge the knee incision was clean. They had no drainage. There is minimal swelling in the thigh and knee and the calf. No distal neurovascular deficits were noted Urinary Catheter Management: Choi: Cath Placed During This Visit: yes Reason for Continuing Indwelling Catheter: Required Immobilization for Trauma or Surgery or Anesthesia Urinary Catheter Date of Insertion: 02/09/22 Urinary Catheter Time of Insertion: 07:30 Discharge Data Studies Completed and Pending Completed Studies During Hospitalization Category Date Time Status XR knee RT 1-2V 25312 Routine Exams 02/09/22 09:02 Completed Radiology Impressions Knee X-Ray 02/09/22 09:02 IMPRESSION: Normal for postoperative purposes. Kellgren-Uriel Classification: NA Laboratory Results WBC 8.9 10^3/uL (4.0-10.0) 01/13/22 14:18 RBC 4.38 10^6/uL (4.1-5.3) 01/13/22 14:18 Hgb 9.1 g/dL (11.5-15.3) L 02/10/22 05:40 Hct 37.0 % (37.0-47.0) 01/13/22 14:18 MCV 84.5 fl (81-99) 01/13/22 14:18 MCH 26.9 pg (28.0-34.0) L 01/13/22 14:18 MCHC 31.9 g/dL (30.0-36.0) 01/13/22 14:18 RDW 14.6 % (12.1-15.1) 01/13/22 14:18 Plt Count 444 10^3/cmm (130-400) H 01/13/22 14:18 MPV 10.2 fL (7.4-10.4) 01/13/22 14:18 Neut % (Auto) 58.4 % 01/13/22 14:18 Lymph % (Auto) 21.8 % 01/13/22 14:18 Craig % (Auto) 8.5 % 01/13/22 14:18 Eos % (Auto) 9.8 % 01/13/22 14:18 Baso % (Auto) 1.0 % 01/13/22 14:18 Neut # (Auto) 5.19 10^3/uL (1.8-7.7) 01/13/22 14:18 Lymph # (Auto) 1.9 10^3/uL (0.8-4.8) 01/13/22 14:18 Craig # (Auto) 0.8 10^3/uL (0.2-0.9) 01/13/22 14:18 Eos # (Auto) 0.9 10^3/uL (0.0-0.8) H 01/13/22 14:18 Baso # (Auto) 0.1 10^3/uL (0.0-0.1) 01/13/22 14:18 Nucleated RBC % (auto) 0 % 01/13/22 14:18 Nucleated RBCs # 0.0 /100WBC 01/13/22 14:18 Sodium 138 mmol/L (136-145) 01/13/22 14:18 Potassium 3.8 mmol/L (3.5-5.1) 01/13/22 14:18 Chloride 104 mmol/L (98-107) 01/13/22 14:18 Carbon Dioxide 21 mmol/L (22-29) L 01/13/22 14:18 Anion Gap 16.8 (5-19) 01/13/22 14:18 BUN 26 mg/dL (8-23) H 01/13/22 14:18 Creatinine 0.7 mg/dL (0.5-0.9) 01/13/22 14:18 GFR Calculation Not Reportable 01/13/22 14:18 Glucose 115 mg/dL (65-115) 01/13/22 14:18 Calculated Osmolality 292 mOsm/kg (285-295) 01/13/22 14:18 Calcium 9.6 mg/dL (8.5-10.5) 01/13/22 14:18 Vitals Last Vital Signs Temp 98.4 F 02/11/22 03:17 Pulse 82 02/11/22 03:17 Resp 18 02/11/22 03:17 BP 168/79 02/11/22 03:17 Pulse Ox 91 02/11/22 00:38 Discharge Plan Discharge Patient Disposition: Home Condition: Stable Prescriptions: New hydrocodone-acetaminophen 7.5-325 mg Tablet 1 tab PO Q4H PRN (Reason: Moderate Pain) 7 Days Qty: 40 0RF aspirin 325 mg Tablet,Delayed Release (Dr/Ec) 325 mg PO DAILY 30 Days Qty: 30 0RF acetaminophen 325 mg Tablet 650 mg PO Q8H 14 Days Qty: 84 0RF Continued hydrochlorothiazide 25 mg tablet 25 mg PO QAM 0RF Complete Multivitamin Tablet 1 tab PO QDAY 0RF magnesium 200 mg tablet 200 mg PO QDAY 0RF duloxetine 30 mg capsule, delayed rel sprinkle 30 mg PO QDAY 0RF duloxetine 60 mg capsule, delayed rel sprinkle 60 mg PO QDAY 0RF omeprazole 40 mg capsule,delayed release(DR/EC) 40 mg PO BID 0RF (DME) Cock up splint See Rx Instructions .Route .MEDSUPPLY Qty: 1 0RF Rx Instructions: As directed Colace 50 mg Capsule 50 mg PO DAILY 0RF cyanocobalamin (vitamin B-12) 1,000 mcg/mL Syringe 0RF tizanidine 2 mg Capsule 2 mg PO Q8H PRN (Reason: Muscle Spasm) 0RF melatonin 12 mg Tablet PO 0RF celecoxib 200 mg Capsule 200 mg PO BID 0RF Discharge Orders: Discharge Order (Routine); Ordered 02/11/22 Ordered By: Braydon Huang Referrals: [facility] ([facility]) [Outside] Braydon Huang MD [Physician] - (3 weeks) Discharge Diet: Advance as tolerated Discharge Activity: Limit activity as instructed Patient Instructions: Opioid Safety Activity Restrictions/Additional Instructions: Okay to shower Keep Tubigauze sleeve in place for swelling. Okay to remove for hygiene. Apply FirstIce up to 20 min/hr for pain and swelling Take Tylenol 325 mg (2 tabs) as needed 3 times a day for mild pain take [place] 7.5 for breakthrough pain. Exercises per physical therapy. May weight-bear as tolerated on total knee arthroplasty IF HAVE ANY PROBLEMS OR QUESTIONS CALL HOSPITAL BIOMEDICAL ENGINEERING TECHNICIAN AT AND ASK TO HAVE DR. SOPHIE DOTY. Discharge Attestations Time Spent in Discharge Care*: other Quality Metrics Clinical Quality Measures [ No reported AMI, CVA or VTE this stay] Coding Level of Care Code Acute [facility] note Diagnoses Status post right knee replacement Z96.651
[2022-02-11] MEDS: CELEcoxib 200 mg Capsule PO (08:55)
[2022-02-11] MEDS: pantoprazole DR 40 mg Tablet PO (08:55)
[2022-02-11] MEDS: duloxetine 60 mg Capsule PO (08:56)
[2022-02-11] MEDS: duloxetine 30 mg Capsule PO (08:56)
[2022-02-11] MEDS: aspirin 325 mg EC Tablet PO (08:56)
--- NOTE | 2022-02-11 12:12 | PC.NURSE ---
DISCHARGE PAPERWORK GONE OVER WITH PT. ALL QUESTIONS ANSWERED. IV REMOVED EARLIER THIS MORNING PER OK BY DOCTOR OSPHIE AND PT REQUEST. PT TOLERATED WELL. CATHETER TIP INTACT. PT SAFELY WHEELED OUT BY THIS NURSE.
[2022-02-11 12:13] VITALS: BP 169/69; PULSE 84; RESP 18; TEMP 36.4; O2SAT 98
--- NOTE | 2022-02-23 18:15 | P.OP_ITS ---
Operative Report Date of procedure: February 23, 2022 Pre-op diagnosis: Preop Diagnosis Osteoarthritis right knee Post-op diagnosis: same Post-op diagnosis: Same Post-op findings: Same Procedure done: Right total knee arthroplasty Implants: Anitra total knee arthroplasty components were used includin) Size Triathalon cruciate retaining femoral component 2) Tritanium tibial component 3) Tritanium asymetric patella 4) CR tibial bearing insert Pathology: none sent Surgeon: Braydon Huang Anesthesia: Nerve Block (Spinal, adductor canal block) Estimated blood loss (mL): 50 Findings: Patient had eburnated bone of the medial femoral condyle medial tibial plateau patella control Condition: stable Disposition: PACU Procedure: The patient was taken to the operating room. Patient was given 1 g of tranexamic acid . The above anesthesia provided by the anesthesia service. A timeout was performed. The patient was prepped and draped in the usual fashion with the lower extremity exposed. A anterior incision was made, midline, from a point proximal to the patella to the distal tibial tubercle. The knee was entered through a medial parapatellar approach. The patella could be displaced laterally and the knee flexed. The patellar fat pad was resected to provide better visibility. Retractors were placed medially and laterally adjacent to the tibial plateau. The femoral canal was drilled in line with the longitudinal axis of the femur. Intramedullary femoral guide for used to make a distal femoral cut in 5 degrees of valgus, resecting 8 mm from the more prominent condyle. Next the extra medullary tibial guide was placed in alignment with the longitudinal axis of the tibia. The cutting guides were set to remove just over 9 mm from the high tibial plateau. The proximal tibia was then cut. The femoral measuring guide was then placed over the distal femur. Rotation was verified checking the relationship of the guide to the condyle and the trochlear groove. The femur was measured and cut for the desired femoral component. The desired tibial baseplate was then chosen. A trial reduction with the femur tibial baseplate and polyethylene was done, assuring that the knee was stable throughout full motion. Ligament balancing involved nothing more than a release of the deep medial collateral ligament.The tibia was prepared for the tibial baseplate. Patellar thickness was then measured. The patella was cut removing articular cartilage and prepared for appropriate size patellar button. surfaces were cleaned with a gentamicin solution. The femur tibia and patella were then press- fit into place. The posterior capsule and collateral ligaments were then injected with a solution of 100 mL of 0.2% ropivacaine, 1 mL of a 1:1000 epinephrine solution, 30 mg of Toradol, and 1 g of tranexamic acid. Final polyethylene component was then snapped into place into the tibia. The extensor retinaculum was closed with a running 1 Stratafix interrupted 1 Ethibond. The subcutaneous tissues were closed with 2-0 Vicryl and the skin was closed with a running 4-0 Stratafix. The wound was covered with a Dermabond Prineo dressing. It was covered with 4xrs and a compressive Tubigauze was applied. The patient was taken to recovery room in stable condition.
== END 2022-02-11 12:14 | disposition home or self-care (01) ==
LOC: MEDSURG 09:43
PROVIDERS: Anesthesiology; Admitting Provider Orthopaedic Surgery; PCP Electrodiagnostic Medicine; Visit Provider Orthopaedic Surgery
PROC: (CPT 27447; principal; 2022-02-09 07:00)
DX: M17.11 Unilateral primary osteoarthritis, right knee (principal); E78.5 Hyperlipidemia, unspecified; I10 Essential (primary) hypertension; M79.7 Fibromyalgia; Z87.891 Personal history of nicotine dependence
CPT/HCPCS: 27447; 36415; 51702; 64447; 73560; 76942; 85018; 97110; 97116; 97161; 97166; 97530; C1776; G0378; J0171; J0690; J1580; J1885; J2250; J2270; J2405; J2704; J2795; J3010; J7030; Q0162

== ENCOUNTER → 2022-02-24 15:01 | Outpatient (BNVA) | payer MEDICARE, SELFPAY | PROVIDERS: PCP Electrodiagnostic Medicine; Visit Provider Orthopaedic Surgery | DX: Z96.651 Presence of right artificial knee joint (principal); Z87.891 Personal history of nicotine dependence | CPT/HCPCS: 99024 ==

== ENCOUNTER → 2022-03-10 10:46 | Outpatient (BNVA) | payer MEDICARE, SELFPAY | PROVIDERS: PCP Electrodiagnostic Medicine; Visit Provider Orthopaedic Surgery | DX: Z96.651 Presence of right artificial knee joint (principal); Z87.891 Personal history of nicotine dependence; Z91.81 History of falling | CPT/HCPCS: 73560; 73565; 99212 ==

== ENCOUNTER → 2022-10-26 15:00 | Outpatient (BNVA) | payer MEDICARE, SELFPAY | PROVIDERS: PCP Electrodiagnostic Medicine; Visit Provider Podiatrist Foot & Ankle Surgery | DX: L84 Corns and callosities (principal) | CPT/HCPCS: 99204 ==

== ENCOUNTER 2023-07-28 12:46 | Outpatient (CLI) | payer MEDICARE, SELFPAY ==
--- NOTE | 2023-07-28 12:58 | MR_ITS ---
WS: [id number] MRI CERVICAL SPINE with and without contrast HISTORY: RADICULOPATHY/NECK PAIN/HX OF SURGERY COMPARISON: 01/31/2014 Technique: Multiplanar, multisequence noncontrast imaging of the cervical spine. Postcontrast imaging , MultiHance 15 mL IV. Prior cervical fusion at C4-5 interbody spacers at C4-5. Severe disc space narrowing at C5-6. There i s very slight reversal the normal cervical lordosis centered at C5-6 contacting the ventral cord. Dis c spaces are all narrowed and desiccated throughout the cervical spine. No marrow edema or fracture. No signal abnormality within the cord. Signal within the cervical cord is normal. Visualized posterior fossa is unremarkable. Craniocervical junction, C1 and C2 relationship, odontoid process and soft tissues are normal. C2-C3: Very slight retrolisthesis of C2. Mild annular disc bulging and osteophytic ridging. Mild bila teral foraminal narrowing, LEFT greater than RIGHT. C3-C4: Mild annular disc bulging. Mild LEFT foraminal stenosis. C4-C5: Mild osteophytic ridging extending greatest to the RIGHT. Mild deformity of the ventral thecal sac and the exiting nerve roots with only mild bilateral foraminal and central stenosis. Moderate hy pertrophic vertebral body osteophyte contributing to the stenosis within the RIGHT foramen. C5-C6: Osteophytic ridging encroaching upon the ventral thecal sac. Moderate central stenosis and ifeanyi ateral foraminal stenosis. Stenosis predominantly due to hypertrophic bone formation. C6-C7: Mild osteophytic ridging and mild annular disc bulging. Mild central, bilateral moderate willis inal stenosis due to combination of disc and osteophyte disease. C7-T1: Normal. Postcontrast images are negative for discitis or osteomyelitis. IMPRESSION: 1. Prior anterior cervical fusion at C4-5. 2. Reversal of the normal cervical lordosis centered at C5-6 with encroachment upon the ventral cervi siddhartha canal. 3. C5-6: Moderate central and bilateral foraminal stenosis. Stenosis predominately due to hypertrophi c bone formation. 4. C4-5: Mild central and bilateral foraminal stenosis. Hypertrophic bone encroaching into the forami na most significant on the RIGHT. Osteophytes are displacing the RIGHT foraminal nerve roots posterio rly. 5. C2-3: Mild bilateral foraminal narrowing, LEFT greater than RIGHT. 6. C6-7: Mild central and moderate bilateral foraminal stenosis due to disc and osteophyte disease.
--- NOTE | 2023-07-28 12:58 | MR_ITS ---
WS: [id number] MRI LUMBAR SPINE WITH AND WITHOUT CONTRAST. HISTORY: BACK PAIN W/RADICULOPATHY/HX OF SURGERY COMPARISON: 02/25/2016 TECHNIQUE: Sagittal and axial multisequence imaging is submitted. Postcontrast imaging 15 mL MultiHan ce. Since the prior MRI there has been a significant progression of degenerative spondylitic changes in t he lumbar spine. Interval placement of posterior lumbar fusion extending from L4-S1. Since the prior examination progression of degenerative disc space narrowing, most significant at L5-S1. Complete los s of the disc at L5-S1 with bone upon bone and marrow changes. L3 anterolisthesis by 3.5 mm. L4 anter olisthesis by 4.8 mm. L5 anterolisthesis by 8.2 mm. Slight retrolisthesis of T12, L1 and L2. Increase in the lumbar lordosis. No acute fracture or marrow edema. Disc spaces are all narrowed and desiccated. Conus terminates normally at L1-2 disc level. T12-L1: Retrolisthesis of T12 with annular disc bulging. Mild bilateral foraminal stenosis. L1-L2: Bilateral facet joint arthritis. No central stenosis. Mild bilateral foraminal stenosis. L2-L3: Mild annular disc bulging encroaching upon the ventral thecal sac. No disc protrusions. Modera te bilateral facet joint arthritis. There is mild central, bilateral subarticular recess and RIGHT fo raminal stenosis. L3-L4: Severe central, bilateral subarticular recess and foraminal stenosis. There is an extruded dis c extending cephalad from the disc level but still in contact with the parent disc. Marked ligamentum flavum and facet arthritis. Effacement of fat in the foramina, LEFT greater than RIGHT. L4-L5: Mild annular disc bulging. Marked facet arthritis. Large posterior laminectomy defect. Part of the thecal sac and facet joints are being obscured by hardware artifact. No significant central sten osis. Moderate bilateral foraminal stenosis. L5-S1: Marked annular disc bulging. Disc extends cephalad to the disc level contacting the ventral th ecal sac. Encroachment upon the subarticular recesses. Clumping of the nerve roots in the thecal sac. No central stenosis. Moderate subarticular recess encroachment upon the S1 nerve roots. Severe bilat eral foraminal stenosis. No discitis or osteomyelitis. IMPRESSION: 1. Prior posterior lumbar fusion from L4-S1 is new since 2016. 2. Significant progression of degenerative changes of the lumbar spine. Increasing lumbar lordosis. S ignificant increase in the anterolisthesis of L3, L4 and L5 since the prior study. Significant increa se in disc space narrowing and desiccation since the prior study. 3. L3-4: Severe central, bilateral subarticular recess and foraminal stenosis. Combination of disc pr otrusions extruding above the disc level with facet and ligamentum flavum arthritis. 4. L4-5: Moderate bilateral foraminal stenosis. 5. Extruded disc extends cephalad to the disc level encroaching upon the subarticular recesses. Moder ate subarticular recess encroachment upon the S1 nerve roots and severe bilateral foraminal stenosis. The anterolisthesis of L5 is contributing to the high-grade stenosis. 6. Mild bilateral foraminal stenosis at T12-L1 and L1-2. 7. L2-3: Mild central, bilateral subarticular recess and RIGHT foraminal stenosis.
[2023-07-28] MEDS: gadobenate dimeglumine 20 mL vial IV (14:50)
== END 2023-07-28 12:47 | disposition home or self-care (01) ==
PROVIDERS: PCP Electrodiagnostic Medicine; Visit Provider Orthopaedic Surgery
DX: M54.12 Radiculopathy, cervical region (principal); M47.26 Other spondylosis with radiculopathy, lumbar region; Z98.1 Arthrodesis status; M48.02 Spinal stenosis, cervical region; M25.78 Osteophyte, vertebrae; M50.923 Unspecified cervical disc disorder at C6-C7 level; M48.07 Spinal stenosis, lumbosacral region
CPT/HCPCS: 72156; 72158; A9577

== ENCOUNTER → 2023-10-12 14:45 | Outpatient (BNVA) | payer MEDICARE, SELFPAY | PROVIDERS: PCP Electrodiagnostic Medicine; Visit Provider Podiatrist Foot & Ankle Surgery | DX: L85.1 Acquired keratosis [keratoderma] palmaris et plantaris | CPT/HCPCS: 17110 ==

== ENCOUNTER → 2023-11-02 14:53 | Outpatient (BNVA) | payer MEDICARE, SELFPAY | PROVIDERS: PCP Electrodiagnostic Medicine; Visit Provider Dermatology | DX: Z85.820 Personal history of malignant melanoma of skin (principal); L82.1 Other seborrheic keratosis; L57.0 Actinic keratosis; D22.39 Melanocytic nevi of other parts of face; D22.5 Melanocytic nevi of trunk; L81.4 Other melanin hyperpigmentation; Z86.006 Personal history of melanoma in-situ | CPT/HCPCS: 17000; 99213 ==

== ENCOUNTER → 2024-01-17 13:37 | Outpatient (BNVA) | payer MEDICARE, SELFPAY | PROVIDERS: PCP Electrodiagnostic Medicine; Visit Provider Podiatrist Foot & Ankle Surgery | DX: L85.1 Acquired keratosis [keratoderma] palmaris et plantaris | CPT/HCPCS: 99213 ==

== ENCOUNTER → 2024-04-05 09:37 | Outpatient (BNVA) | payer MEDICARE, SELFPAY | PROVIDERS: PCP Electrodiagnostic Medicine; Visit Provider Podiatrist Foot & Ankle Surgery | DX: L60.1 Onycholysis (principal) | CPT/HCPCS: 99213 ==

== ENCOUNTER 2025-07-12 09:49 | Outpatient (CLI) | payer MEDICARE, SELFPAY ==
--- NOTE | 2025-07-12 10:01 | USCV_ITS ---
Maris Eng Age: 74 Gender: F : 1950 Exam Date: 07/12/2025 10:17 Ordering Phys: Gideon Santana DO Technologist: [place] [facility] [place]: cp sob BP: 135 / 80 HR: 82 Rhythm: Sinus Technical Quality: Adequate MEASUREMENTS (Male / Female) Normal Values 2D ECHO LV Diastolic Diameter PLAX 3.1 cm 4.2 - 5.9 / 3.9 - 5.3 cm IVS Diastolic Thickness 1.8 cm 0.6 - 1.0 / 0.6 - 0.9 cm IVS Systolic Thickness 1.8 cm LVPW Diastolic Thickness 1.6 cm 0.6 - 1.0 / 0.6 - 0.9 cm LVPW Systolic Thickness 1.7 cm LVOT Diameter 2.0 cm LV Ejection Fraction 2D Teich 67.0 % LV Ejection Fraction MOD 4C 69.6 % LV Ejection Fraction MOD 2C 61.2 % LV Ejection Fraction 2C AL 63.9 % LA Diameter 3.2 cm RA Systolic Volume 4C AL 29.0 ml RA Systolic Volume 4C MOD 28.9 ml Aorta at Sinotubular Diameter 2.6 cm IVC Diameter 1.1 cm M-MODE LA Ao Ratio MM 1.1 AV Cusp Separation MM 2.1 cm DOPPLER AV Peak Velocity 160.0 cm/s LVOT Peak Velocity 95.0 cm/s AV Area Cont Eq vti 2.5 cm squared AV Area Cont Eq pk 1.9 cm squared MV Peak Velocity 152.0 cm/s MV Area PHT 4.7 cm squared Mitral E to A Ratio 0.5 TR Peak Velocity 136.0 cm/s TR Peak Gradient 7.4 mmHg TV Peak E Velocity 82.0 cm/s PV Peak Velocity 130.0 cm/s FINDINGS Left Ventricle Normal left ventricular size, systolic function and wall thickness, with no regional wall motion abnormalities. Left ventricular ejection fraction is estimated at 60 %. Grade I/IV diastolic dysfunction (abnormal relaxation filling pattern), normal to mildly elevated filling pressures. Right Ventricle The right ventricle is normal in size and function. Right Atrium The right atrium is normal in size. Left Atrium The left atrium is normal in size. Mitral Valve Moderately thickened mitral valve. No mitral valve stenosis. Trace mitral valve regurgitation. Aortic Valve Moderate aortic valve calcification. No aortic valve stenosis. Trace aortic valve regurgitation. Tricuspid Valve Structurally normal tricuspid valve without significant stenosis or regurgitation. Pulmonary artery systolic pressure is normal. Pulmonic Valve Structurally normal pulmonic valve without significant stenosis. There is no pulmonic regurgitation. Pericardium Normal pericardium without effusion. Aorta Normal ascending aorta dimension. IVC The inferior vena cava appears normal. CONCLUSIONS Normal left ventricular size, systolic function and wall thickness, with no regional wall motion abnormalities. Left ventricular ejection fraction is estimated at 60 %. Grade I/IV diastolic dysfunction (abnormal relaxation filling pattern), normal to mildly elevated filling pressures. No significant valve abnormalities. There is no pericardial effusion. Right atrial pressure is around 5 mm of mercury. Diego Duron MD (Electronically Signed) Final Date: 18 July 2025 21:05 S
== END 2025-07-12 09:50 | disposition home or self-care (01) ==
LOC: RAD 09:50
PROVIDERS: PCP Electrodiagnostic Medicine; Visit Provider Electrodiagnostic Medicine
DX: R01.1 Cardiac murmur, unspecified (principal); R93.1 Abnormal findings on diagnostic imaging of heart and coronary circulation; I35.8 Other nonrheumatic aortic valve disorders
CPT/HCPCS: 93306

== ENCOUNTER 2025-07-23 05:00 | Outpatient (RCR) | payer MEDICARE, SELFPAY | END 2025-08-21 23:59 | disposition home or self-care (01) | LOC: SPT 05:00 | PROVIDERS: Visit Provider Electrodiagnostic Medicine | DX: R26.81 Unsteadiness on feet (principal) | CPT/HCPCS: 97110; 97150; 97161 ==

== ENCOUNTER 2025-08-30 16:24 | Outpatient (RCR) | payer MEDICARE, SELFPAY | END 2025-09-21 23:59 | disposition home or self-care (01) | LOC: SPT 16:24 | PROVIDERS: Visit Provider Electrodiagnostic Medicine | DX: R26.81 Unsteadiness on feet (principal) | CPT/HCPCS: 97110 ==

== ENCOUNTER 2025-09-03 09:59 | Outpatient (CLI) | payer MEDICARE, SELFPAY ==
--- NOTE | 2025-09-03 10:07 | XR_ITS ---
WS: [id number] XR chest 2V* [id number] REASON FOR EXAM: PERSONAL HX OF MALIGNANT MELANOMA OF SKIN FINDINGS: The chest is similar compared to 07/30/2016. Moderate tortuosity of the aortic arch and thoracic aorta. Mild cardiomegaly. Calcified granulomatous disease bilaterally. No lung nodule, lung mass, or adenopathy identified. No other pulmonary parenchymal or pleural abnormality. Levoscoliosis and moderate degenerative spondylosis of the thoracic spine. XR/XR chest 2V* [id number] IMPRESSION: Stable chest with atherosclerotic aorta and mild cardiomegaly. No findings of pulmonary metastatic disease.
== END 2025-09-03 10:00 | disposition home or self-care (01) ==
PROVIDERS: PCP Electrodiagnostic Medicine; Visit Provider Dermatology
DX: Z85.820 Personal history of malignant melanoma of skin (principal); I51.7 Cardiomegaly; I70.0 Atherosclerosis of aorta; Q25.46 Tortuous aortic arch; I77.810 Thoracic aortic ectasia; M47.894 Other spondylosis, thoracic region; M41.84 Other forms of scoliosis, thoracic region
CPT/HCPCS: 36415; 71046; 83615

== ENCOUNTER 2025-10-22 06:30 | Outpatient (RCR) | payer MEDICARE, SELFPAY | END 2025-11-21 23:59 | disposition home or self-care (01) | LOC: SPT 06:30 | PROVIDERS: PCP Electrodiagnostic Medicine; Visit Provider Electrodiagnostic Medicine | DX: R26.81 Unsteadiness on feet (principal) | CPT/HCPCS: 97110 ==